=== PATIENT | male | born 1955 | race Two or more races ===

== ENCOUNTER 2024-03-23 08:55 | Emergency (ER) | payer OTHER, MEDICAID ==
[~2024-03-23] VITALS: Ht 182.9 cm; Wt 98.0 kg
[2024-03-23 10:56] VITALS: BP 140/74; PULSE 68; RESP 18; TEMP 98.2; O2SAT 97
[2024-03-23] MEDS: IBUPROFEN 800 MG TAB PO PRN (11:36)
[2024-03-23] MEDS: KETOROLAC TROMETH 30 MG/ML 1ML VIAL IV ONE ×2 (11:36→11:39)
[2024-03-23] MEDS ORDERED: KETOROLAC TROMETH 60MG/2ML VIAL IM ONE (11:45)
[2024-03-23] MEDS: KETOROLAC TROMETH 60MG/2ML VIAL IM ONE (12:04)
[2024-03-23] MEDS ORDERED: IBUP-1456 PO (16:24)
== END 2024-03-23 16:29 | disposition home or self-care (01) ==
LOC: ER 08:55
DX: S83.8X2A Sprain of other specified parts of left knee, initial encounter (principal); M25.562 Pain in left knee; X58.XXXA Exposure to other specified factors, initial encounter; Y93.89 Activity, other specified; Y92.89 Other specified places as the place of occurrence of the external cause; Y99.8 Other external cause status
CPT/HCPCS: 73560; 96372; 99283; J1885

== ENCOUNTER 2024-07-04 07:47 | Inpatient (IN) | payer OTHER, MEDICAID ==
[~2024-07-04] VITALS: Ht 182.9 cm; Wt 92.9 kg
[~2024-07-04 07:47] MED LIST: IBUP-1456 PO
--- NOTE | 2024-07-04 08:41 | ED.PDOC ---
SOB-HPI HPI Comments A 68Y M WITH PMHX LUNG DISEASE PRESENTS TO ED VIA EMS FOR CHIEF COMPLAINT FLU- LIKE SYMPTOMS X3DAYS. PT'S SYMPTOMS INCLUDE COUGH, CONGESTION, AND SORE THROAT. WHEN COUGHING, PT C/O CHEST TIGHTNESS WITH MIDDLE BACK PAIN. PER PT, HE HAS HX OF LUNG DISEASES AND PNEUMONIA IN THE PAST. PT DENIES CHEST PAIN, SOB, NAUSEA, VOMITING AND OTHER COMPLAINTS. NO OTHER SYMPTOMA REPORTED AT THIS TIME OF CARE. PATIENT IS ALERT, ORIENTED X 4, AND HAS STEADY GAIT. Chief Complaint: Flu like Time Seen by MD: 08:25 Primary Care Provider: DR CHRIS HUA Reviewed notes: Nurses Notes, Medications, Allergies Information Source: Patient Mode of Arrival: EMS Brought in by: EMS Severity: Mild, Moderate Timing: Days Duration: Since onset Context: At Rest PE Risk Factors: None History of: Other Prehospital treatment: None Modifying Factors: Nothing Associated Signs and Symptoms: Cough, Nasal Congestion, Sore Throat Quality: Tightness If cough with SOB: Productive Past Medical History Past Medical History (Other): PULMONARY DISEASE AND PNEUMONIA Surgical History: Denies all surgeries Family History Family History: Reviewed,noncontributory to illness, No family hx of Cancer, No family hx of DM, No family hx of Heart josh, No family hx of HTN, No family hx ofKidney josh, No family hx of Liver josh, No family hx of Lung josh, No family hx of Stroke Social History Smoker: Non-Smoker Alcohol: Denies ETOH Use Drugs: Denies Drug Use Lives In: Home Constitutional: denies: chills, diaphoresis, fatigue, fever, malaise, sweats, weakness, others EENTM: reports: nose congestion, throat pain, throat swelling; denies: blurred vision, double vision, ear bleeding, ear discharge, ear drainage, ear pain, ear ringing, eye pain, eye redness, hearing loss, mouth pain, mouth swelling, nasal discharge, nose bleeding, nose pain, photophobia, tearing, voice changes, others Respiratory: reports: cough; denies: hemoptysis, orthopnea, SOB at rest, s hortness of breath, SOB with excertion, stridor, wheezing, others Cardiovascular: denies: chest pain, dizzy spells, diaphoresis, Dyspnea on exertion, edema, irregular heart beat, left arm pain, lightheadedness, palpitations, PND, syncope, others Gastrointestinal: denies: abdomen distended, abdominal pain, blood streaked bowels, constipated, diarrhea, dysphagia, difficulty swallowing, hematemesis, melena, nausea, poor appetite, poor fluid intake, rectal bleeding, rectal pain, vomiting, others Genitourinary: denies: burning, dysuria, flank pain, frequency, hematuria, in continence, penile discharge, penile sore, pain, testicle pain, testicle swelling, urgency, others Neurological: denies: dizziness, fainting, headache, left sided numbness, left sided weakness, numbness, paresthesia, pre-existing deficit, right sided numbness, right sided weakness, seizure, speech problems, tingling, tremors, weakness, others Musculoskeletal: denies: back pain, gout, joint pain, joint swelling, muscle pain, muscle stiffness, neck pain, others Integumetry: denies: bruises, change in color, change in hair/nails, dryness, laceration, lesions, lumps, rash, wounds, others Allergic/Immunocompromised: denies: Difficulty Healing, Frequent Infections, Hives, Itching, others Hematologic/Lymphatic: denies: anemia, blood clots, easy bleeding, easy bruising, swollen glands, others Endocrine: denies: excessive hunger, excessive sweating, excessive thirst, excessive urination, flushing, intolerance to cold, intolerance to heat, unexplained weight gain, unexplained weight loss, others Psychiatric: denies: anxiety, bipolar disorder, depression, hopeless, panic disorder, schizophrenia, sleepless, suicidal, others Physical Exam General Appearance: No Apparent Distress, Normal HEENT: PERRL/EOMI, Pharyngeal Erythema, TMs Normal Neck: Full Range of Motion, Non-Tender, Normal, Normal Inspection Respiratory: Chest Non-Tender, Expiration, No Accessory Muscle Use, No Respiratory Distress, Rhonchi Cardiovascular: No Edema, No JVD, No Murmur, No Gallop, Normal Peripheral Pulses, Regular Rate/Rhythm Breast Exam: Deferred Gastrointestinal: No Organomegaly, Non Tender, No Pulsatile Mass, Normal Bowel Sounds, Soft Genitalia: Deferred Pelvic: Deferred Rectal: Deferred Extremities: No calf tenderness, Normal capillary refill, Normal inspection, Normal range of motion, Non-tender, No pedal edema Musculoskeletal : Apperance: Normal Neurologic: Alert, sea shell gatherer II-XII nml as Tested, No Motor Deficits, Normal Affect, Normal Mood, No Sensory Deficits Cerebellar Function: Normal Reflexes: Normal Skin: Dry, Normal Color, Warm Peripheral Pulses: 2+ carotid (R), 2+ carotid (L) Lymphatic: No Adenopathy Was a procedure done? Was a procedure done?: No Differential Dx Differential Diagnosis: COPD, Pneumonia, Sinusitis, Allergic Rhinitis, URI X-Ray, Labs, Meds, VS Vital Signs Date Time Temp Pulse Resp B/P (MAP) Pulse Ox O2 Delivery O2 Flow Rate FiO2 07/04/24 08:14 75 24 97 Room Air 07/04/24 08:14 98.2 75 24 123/70 (87) 97 98.2 07/04/24 08:00 24 97 Room Air* 0 21 07/04/24 07:54 98.2 75 24 123/70 (87) 97 Lab Test 07/04/24 10:34 07/04/24 09:30 Range/Units SARS-CoV-2 Antigen (Rapid) Negative NEGATIVE White Blood Count 5.8 4.4-10.8 10^3/uL Red Blood Count 5.09 4.5-5.90 10^6/uL Hemoglobin 16.6 13.5-17.5 g/dL Hematocrit 47.2 41.0-53.0 % Mean Corpuscular Volume 92.7 80.0-100.0 fL Mean Corpuscular Hemoglobin 32.7 H 28.0-32.0 pg Mean Corpuscular Hemoglobin Concent 35.2 32.0-36.0 g/dL Red Cell Distribution Width 12.3 11.8-14.3 % Platelet Count 173 140-450 10^3/uL Mean Platelet Volume 8.4 6.9-10.8 fL Neutrophils (%) (Auto) 62.7 37.0-80.0 % Lymphocytes (%) (Auto) 18.9 10.0-50.0 % Monocytes (%) (Auto) 17.0 H 0.0-12.0 % Eosinophils (%) (Auto) 1.0 0.0-7.0 % Basophils (%) (Auto) 0.4 0.0-2.0 % Neutrophils # (Auto) 3.6 1.6-8.6 10 ^3/uL Lymphocytes # (Auto) 1.1 0.4-5.4 10 ^3/uL Monocytes # (Auto) 1.0 0-1.3 10 ^3/uL Eosinophils # (Auto) 0.1 0-0.8 10 ^3/uL Basophils # (Auto) 0 0-0.2 10 ^3/uL Nucleated Red Blood Cells 0.2 % Sodium Level 138 136-145 mmol/L Potassium Level 4.0 3.5-5.1 mmol/L Chloride Level 103 98-107 mmol/L Carbon Dioxide Level 28 20-31 mmol/L Anion Gap 7 5-15 Blood Urea Nitrogen 12 9-23 mg/dL Creatinine 1.04 0.700-1.30 mg/dL Glomerular Filtration Rate Calc 79 >90 mL/min BUN/Creatinine Ratio 11.5 10.0-20.0 Serum Glucose 103 74-106 mg/dL Lactic Acid Level 0.8 0.4-2.0 mmol/L Calcium Level 10.5 H 8.7-10.4 mg/dL Current Medications Medications (Trade) Dose Ordered Sig/Jorge Route Start Time Stop Time Status Last Admin Sodium Chloride 1,000 ml @ 150 mls/hr Q6H40M ONCE IV 07/04/24 09:30 07/04/24 16:09 07/04/24 09:50 Ceftriaxone Sodium 50 ml @ 100 mls/hr ONCE ONCE IV 07/04/24 09:30 07/04/24 09:59 DC 07/04/24 09:56 Azithromycin 250 ml @ 125 mls/hr ONCE ONCE IV 07/04/24 09:30 07/04/24 11:29 DC 07/04/24 10:47 [place] [address] Ph: [phone] DIAGNOSTIC IMAGING Diagnostic Imaging Report : [id number] Signed PATIENT: MELANIE ABREU JR ACCT: [id number] UNIT: [id number] : 1955 LOC: ER ROOM / BED: / AGE / SEX: 68 / M ADM STATUS: REG ER SERVICE 08 ORDERING PHYSICIAN: BREEZY OROZCO PROCEDURE(s): CXR2 - CHEST TWO VIEWS ROUTINE REASON: COUGH ORDER NUMBER(s): [id number], ACCESSION NUMBER(s): [id number] EXAM: XY CHEST TWO VIEWS ROUTINE CLINICAL HISTORY: COUGH COMPARISON: None TECHNIQUE: Frontal and lateral view of the chest was obtained FINDINGS: Lines and Tubes: None Lungs: Right basilar opacity. Pleura: Possible small right pleural effusion. No pneumothorax. Cardiomediastinal contours: Unremarkable Bones: No acute osseous abnormality. IMPRESSION: Suggestion of right lower lobe pneumonia with possible small right pleural effusion. Recommend repeat radiograph after the completion of treatment to ensure resolution. ATED BY: LYNDSEY BOOKER MD DICTATED DATE/TIME: 07/04/24903 SIGNED BY: LYNDSEY BOOKER MD SIGNED DATE/TIME: 07/04/24903 CC: X-Ray, Labs, Meds, VS Comment COURSE: EXTERNAL MEDICAL RECORDS REVIEWED: [NONE] INDEPENDENT HISTORIANS: [NONE] SOCIAL DETERMINANTS OF HEALTH: [NONE] LABS ORDERED: CBC, BMP, LACTIC ACID, BLOOD CULTURE, COVID REVIEWED AND INTERPRETED RESULTS: NONE IMAGING ORDERED: CXR CHEST X RAY RESULT: BILATERAL LOWER LOBE PNEUMONIA TREATMENTS ORDERED: AZITHROMYCIN 500MG IV, NS 0.9, CEFTRIAXONE 1GM/50ML PROCEDURES PERFORMED: NONE CRITICAL CARE TIME: NONE PT PRESENT FOR COUGH AND CONGESTION. FEELS CHEST TIGHTNESS AND BACK PAIN. CLINICALLY, FEEL LIKE HE HAS PNA SO CXR WAS DONE WHICH SHOWS PNA AND SLIGHT CONSOLIDATION. ACCORDING TO HX OF PNA AND CHRONIC PULMONARY DISEASE, PT NEEDS TO BE ADMITTED FOR TREATMENT OF PNA. I HAVE DISCUSSED THE PATIENT WITH THE ATTENDING PHYSICIAN DR. GERALD BATISTA AND SHE AGREES WITH THE PATIENT'S PLAN OF CARE. Time of 1ST Reevaluation: 08:55 Reevaluation 1ST: Unchanged Patient Education/Counseling: Diagnosis, Treatment Family Education/Counseling: Diagnosis, Treatment, No Family Present Departure 1 Departure Time of Disposition: 10:22 Impression: Primary Impression: Pneumonia Qualified Codes: J18.9 - Pneumonia, unspecified organism Disposition: ADMITTED INPATIENT Condition: Serious Additional Instructions: Critical Care Note Critical Care Time?: No Stability Stability form required: Yes Unstable for transfer: Requires medication, ED Physician Assesment, Possible rapid decline Heart Score Heart Score: Heart Score Response (Comments) Value History Slightly Suspicious 0 EKG N/A 0 Age N/A 0 Risk Factors N/A 0 Troponin N/A 0 Total 0 I personally scribed for BREEZY OROZCO ([email or web address]) on 07/04/24 at 08:41. Electronically submitted by Angelica Lu ([facility]). I personally scribed for BREEZY OROZCO ([email or web address]) on 07/04/24 at 09:07. Electronically submitted by Angelica Lu ([facility]). I personally scribed for BREEZY OROZCO ([email or web address]) on 07/04/24 at 10:22. Electronically submitted by Angelica Lu ([facility]). I personally scribed for BREEZY OROZCO ([email or web address]) on 07/04/24 at 10:36. Electronically submitted by Angelica Lu ([facility]). BREEZY OROZOC Jul 04, 2024 08:41
--- NOTE | 2024-07-04 09:05 | DVH ---
EXAM: XY CHEST TWO VIEWS ROUTINE CLINICAL HISTORY: COUGH COMPARISON: None TECHNIQUE: Frontal and lateral view of the chest was obtained FINDINGS: Lines and Tubes: None Lungs: Right basilar opacity. Pleura: Possible small right pleural effusion. No pneumothorax. Cardiomediastinal contours: Unremarkable Bones: No acute osseous abnormality. IMPRESSION: Suggestion of right lower lobe pneumonia with possible small right pleural effusion. Recommend repeat radiograph after the completion of treatment to ensure resolution.
[2024-07-04 09:47] LABS: Basophils # (auto) 0 10 ^3/uL (0-0.2); Basophils % (auto) 0.4 % (0.0-2.0); Eosinophils # (auto) 0.1 10 ^3/uL (0-0.8); Hematocrit 47.2 % (41.0-53.0); Hemoglobin 16.6 g/dL (13.5-17.5); Lymphocytes # (auto) 1.1 10 ^3/uL (0.4-5.4); Lymphocytes % (auto) 18.9 % (10.0-50.0); Mean Corpuscular Hemoglobin 32.7 pg (28.0-32.0); Mean Corpuscular Hgb Conc. 35.2 g/dL (32.0-36.0); Mean Corpuscular Volume 92.7 fL (80.0-100.0); Neutrophils # (auto) 3.6 10 ^3/uL (1.6-8.6); Neutrophils % (auto) 62.7 % (37.0-80.0); Nucleated Red Blood Cells % 0.2 %; Platelet Count (auto) 173 10^3/uL (140-450); Red Blood Cells 5.09 10^6/uL (4.5-5.90); Red Cell Distribution Width 12.3 % (11.8-14.3); White Blood Cell 5.8 10^3/uL (4.4-10.8)
[2024-07-04] MEDS: SODIUM CHLORIDE 0.9% 1,000 ML IV ONE (09:50)
[2024-07-04] MEDS: cefTRIAXone 1GM/50ML D5W 50 ML IV ONE (09:56)
[2024-07-04 10:11] LABS: Chloride 103 mmol/L (98-107); Sodium 138 mmol/L (136-145)
[2024-07-04 10:12] LABS: Anion Gap 7 (5-15); Carbon Dioxide 28 mmol/L (20-31)
[2024-07-04 10:16] LABS: Calcium 10.5 mg/dL (8.7-10.4)
[2024-07-04 10:17] LABS: Glucose 103 mg/dL (74-106)
[2024-07-04 10:18] LABS: BUN/Creatinine Ratio 11.5 (10.0-20.0); Blood Urea Nitrogen 12 mg/dL (9-23)
[2024-07-04] MEDS: AZITHROMYCIN 500MG/ 250ML 250 ML IV ONE (10:47)
[2024-07-04] MEDS ORDERED: AMLO1TAB21 PO (11:29)
[2024-07-04] MEDS ORDERED: MORPHINE SULFATE INJ 2 MG/ml SYRG IV PRN (11:30)
[2024-07-04] MEDS ORDERED: DOCUSATE SOD 100 MG CAP PO PRN (11:30)
[2024-07-04] MEDS ORDERED: ONDANSETRON HCL 4 MG/2 ML VIAL IV PRN (11:30)
[2024-07-04] MEDS ORDERED: HYDROcodone-ACET 5/325MG TAB PO PRN (11:30)
[2024-07-04] MEDS ORDERED: ACETAMINOPHEN 325 MG TAB PO PRN (11:30)
--- NOTE | 2024-07-04 11:32 | DVHHP2 ---
History of Present Illness Reason for Visit: cough, congestion, sore throat, and chest tightness History of Present Illness Jorge Syed JR is a 68-year-old male with past medical history of hypertension and lung disease who presents to the ED today for cough, congestion, sore throat, and chest tightness x3 days. Patient reports productive yellow sputum for the last 3 days. Patient reports that he has been feeling flu-like for the last 3 days, reports that he lives in a recuperative custodial with sick individuals. He also reports that the smoke in the facility. Patient reports that he is compliant with his medication. He reports that he drinks beer occasionally. Patient reports that he has a history of lung disease but not sure exactly what and that they did a biopsy back in 2017 and he does not recall the results. He denies smoking or illicit drug use, denies chest pain, shortness of breath, fever, chills, FERREIRA, and lightheadness. Cardiovascular: HTN Pulmonary: Other (lung disease) Past Surgical History: None Family History: Hypertension Family History Mom - HTN Dad - smoker Dad and mom both from heart attacks Smoke: No ALCOHOL: occassional Drugs: None Lives: Other Domestic Violence: Neg Review of Systems Constitutional: No: Fever, Chills, Sweats, Weakness, Malaise, Other Eyes: No: Pain, Vision change, Conjunctivae inflammation, Eyelid inflammation, Other, Redness ENT: Other (sore throat); No: Ear pain, Ear discharge, Nose pain, Nose discharge, Nose congestion, Mouth pain, Mouth swelling, Throat pain, Throat swelling Respiratory: Cough, Other (congestion); No: Dry, Shortness of breath, SOB with excertion, Wheezing, Hemoptysis, Pleuritic Pain, Sputum, Wheezing Cardiovascular: Other (chest tightness); No: Chest Pain, Palpitations, Orthopnea, Paroxysmal Noc. Dyspnea, Edema, Lt Headedness Gastrointestinal: No: Nausea, Vomiting, Abdominal Pain, Diarrhea, Constipation, Melena, Hematochezia, Other Genitourinary: No Dysuria, No Frequency, No Incontinence, No Hematuria, No Retention, No Other Musculoskeletal: No: other, neck pain, shoulder pain, arm pain, back pain, hand pain, leg pain, foot pain Skin: No: Rash, Lesions, Jaundice, Bruising, Other Neurological: No: Weakness, Numbness, Incoordination, Change in speech, Confusion, Seizures, Other Allergies: Coded Allergies: NO KNOWN ALLERGIES (Unverified , 03/23/24) Exam Vital Signs Vital Signs Date Time Temp Pulse Resp B/P (MAP) Pulse Ox O2 Delivery O2 Flow Rate FiO2 07/04/24 08:14 75 24 97 Room Air 07/04/24 08:14 98.2 123/70 (87) 98.2 07/04/24 08:00 0 21 General Appearance: Alert, Oriented X3, Cooperative, No acute distress HEENT: Atraumatic, PERRLA, EOMI, Mucous membr. moist/pink Respiratory: Normal air movement Cardiovascular: Regular rate, Normal S1, Normal S2, No murmurs Abdominal: Normal bowel sounds, Soft, No tenderness, No hepatospenomegaly, No masses Extremities: No clubbing, No cyanosis, No edema, Normal pulses, No t enderness/swelling Skin: No rashes, No breakdown, No significant lesion Neuro: Normal gait, Normal speech, Strength at 5/5 X4 ext, Normal tone, Sensation intact Psych/Mental Status: Mental status NL, Mood NL Labs/Xrays Labs Test 07/04/24 10:34 07/04/24 09:30 Range/Units White Blood Count 5.8 4.4-10.8 10^3/uL Red Blood Count 5.09 4.5-5.90 10^6/uL Hemoglobin 16.6 13.5-17.5 g/dL Hematocrit 47.2 41.0-53.0 % Mean Corpuscular Volume 92.7 80.0-100.0 fL Mean Corpuscular Hemoglobin 32.7 H 28.0-32.0 pg Mean Corpuscular Hemoglobin Concent 35.2 32.0-36.0 g/dL Red Cell Distribution Width 12.3 11.8-14.3 % Platelet Count 173 140-450 10^3/uL Mean Platelet Volume 8.4 6.9-10.8 fL Neutrophils (%) (Auto) 62.7 37.0-80.0 % Lymphocytes (%) (Auto) 18.9 10.0-50.0 % Monocytes (%) (Auto) 17.0 H 0.0-12.0 % Eosinophils (%) (Auto) 1.0 0.0-7.0 % Basophils (%) (Auto) 0.4 0.0-2.0 % Neutrophils # (Auto) 3.6 1.6-8.6 10 ^3/uL Lymphocytes # (Auto) 1.1 0.4-5.4 10 ^3/uL Monocytes # (Auto) 1.0 0-1.3 10 ^3/uL Eosinophils # (Auto) 0.1 0-0.8 10 ^3/uL Basophils # (Auto) 0 0-0.2 10 ^3/uL Nucleated Red Blood Cells 0.2 % Sodium Level 138 136-145 mmol/L Potassium Level 4.0 3.5-5.1 mmol/L Chloride Level 103 98-107 mmol/L Carbon Dioxide Level 28 20-31 mmol/L Anion Gap 7 5-15 Blood Urea Nitrogen 12 9-23 mg/dL Creatinine 1.04 0.700-1.30 mg/dL Glomerular Filtration Rate Calc 79 >90 mL/min BUN/Creatinine Ratio 11.5 10.0-20.0 Serum Glucose 103 74-106 mg/dL Lactic Acid Level 0.8 0.4-2.0 mmol/L Calcium Level 10.5 H 8.7-10.4 mg/dL EXAM: XY CHEST TWO VIEWS ROUTINE CLINICAL HISTORY: COUGH COMPARISON: None TECHNIQUE: Frontal and lateral view of the chest was obtained FINDINGS: Lines and Tubes: None Lungs: Right basilar opacity. Pleura: Possible small right pleural effusion. No pneumothorax. Cardiomediastinal contours: Unremarkable Bones: No acute osseous abnormality. IMPRESSION: Suggestion of right lower lobe pneumonia with possible small right pleural effusion. Recommend repeat radiograph after the completion of treatment to ensure resolution. Assessment/Plan Assessment/Plan Assessment/Plan: PNA labs cxr ekg am ekg am labs IV Abx ua resp tx prn cxr am blood cxs Lung disease O2 prn HTN continue home meds - amlodipine FEN/PPX diet patient ambulating no indication for DVT ppx PUD ppx not indicated no Hx of GERD Discussed plan of care with patient and nurse Admit to med [facility] Home medications reconciled Plan discussed with: Patient My Orders Orders - VICKEY ANDERSON OFFICE TECHNOLOGY PROFESSOR Procedure Category Date Status Time Azithromycin 500mg/ PHA 07/05/24 Transmitted 250ml (Zithromax 50 10:00 Ceftriaxone Ivpb PHA 07/05/24 Transmitted Rocephin 09:00 Albuterol Medneb PHA 07/04/24 Transmitted (Ventolin Medneb) 11:30 Ipratropium Medneb [facility] 07/04/24 Transmitted (Atrovent Medneb) 11:30 Admit ADMIT 07/04/24 Transmitted 11:22 Code Status CODE 07/04/24 Transmitted 11:22 Vital Signs [facility] 07/04/24 In Process 11:22 Review Orders With [facility] 07/04/24 In Process Adm. 11:22 Consistent DIET 07/04/24 Transmitted Carb(Ccho)Diabetes Lunch Docusate Sodium [facility] 07/04/24 Transmitted Capsule (Colace 11:30 Acetaminophen Tablet [facility] 07/04/24 Transmitted (Tylenol Tablet) 11:30 Notify Md Of Changes [facility] 07/04/24 In Process From Base 11:22 Advance Directive [facility] 07/04/24 In Process 11:22 Basic Metabolic Panel LAB 07/05/24 Verified 04:00 Complete Blood Count LAB 07/05/24 Verified 04:00 Allergies [facility] 07/04/24 In Process 11:22 Hydrocodone-Acet [facility] 07/04/24 Transmitted 5/325mg Tab ([place] 11:30 Ondansetron Hcl [facility] 07/04/24 Transmitted (Zofran) 11:30 Morphine 2mg Iv Q4hprn [facility] 07/04/24 Transmitted 11:30 Chest Xray 1 View XY 07/05/24 Logged 04:00 Date of Service: Jul 04, 2024 Billing Provider: VICKEY ANDERSON Common Visit Codes: [id number] INP/OBS CARE (MOD) VICKEY ANDERSON Jul 04, 2024 11:32
[2024-07-04 11:34] LABS: COVID19 ANTIGEN SOFIA FIA NEGATIVE (NEGATIVE)
[2024-07-04 11:52] VITALS: BP 123/70; PULSE 81; RESP 18; TEMP 98.2; O2SAT 99
[2024-07-04 15:06] VITALS: BP 135/91; PULSE 75; RESP 22; TEMP 98.4; O2SAT 93
[2024-07-04 19:25] VITALS: O2SAT 94
[2024-07-04 22:25] VITALS: BP 134/79; PULSE 71; RESP 18; RESP 20; TEMP 98.7; O2SAT 94; O2SAT 96
[2024-07-05] VITALS (9 sets, daily range): BP systolic 112–135; BP diastolic 70–79; PULSE 65–71; RESP 16–20; TEMP 97.9–98.7; O2SAT 94–98
[2024-07-05] MEDS: MELATONIN 5 MG TAB PO ONE (00:01)
[2024-07-05 03:34] LABS: COVID19 ANTIGEN SOFIA FIA NEGATIVE (NEGATIVE)
[2024-07-05 06:13] LABS: Basophils # (auto) 0 10 ^3/uL (0-0.2); Basophils % (auto) 0.3 % (0.0-2.0); Eosinophils # (auto) 0.1 10 ^3/uL (0-0.8); Eosinophils % (auto) 1.7 % (0.0-7.0); Hematocrit 39.7 % (41.0-53.0); Hemoglobin 14.2 g/dL (13.5-17.5); Lymphocytes # (auto) 1.8 10 ^3/uL (0.4-5.4); Mean Corpuscular Hgb Conc. 35.7 g/dL (32.0-36.0); Mean Corpuscular Volume 92.5 fL (80.0-100.0); Monocytes % (auto) 15.9 % (0.0-12.0); Neutrophils # (auto) 3.3 10 ^3/uL (1.6-8.6); Neutrophils % (auto) 53.1 % (37.0-80.0); Nucleated Red Blood Cells % 0.1 %; Platelet Count (auto) 160 10^3/uL (140-450); Red Cell Distribution Width 12.5 % (11.8-14.3); White Blood Cell 6.2 10^3/uL (4.4-10.8)
[2024-07-05 06:27] LABS: Calcium 9.6 mg/dL (8.7-10.4); Chloride 103 mmol/L (98-107); Potassium 3.6 mmol/L (3.5-5.1); Sodium 138 mmol/L (136-145)
[2024-07-05 06:28] LABS: Anion Gap 10 (5-15); Carbon Dioxide 25 mmol/L (20-31)
--- NOTE | 2024-07-05 06:29 | DVH ---
CHEST RADIOGRAPH Indication: pna Technique: Single frontal view of the chest was obtained Comparison: None IMPRESSION: There are low lung volumes. Blunting of the right costophrenic angle May relate to small effusion. M ild pulmonary vascular congestion and interstitial prominence. Findings appear similar to prior exami nation.
[2024-07-05 06:33] LABS: BUN/Creatinine Ratio 16.7 (10.0-20.0); Blood Urea Nitrogen 18 mg/dL (9-23); Glucose 95 mg/dL (74-106)
[2024-07-05 07:51] LABS: Alanine Aminotransferase 12 U/L (7-40); Albumin 4.1 g/dL (3.2-4.8); Alkaline Phosphatase 89 U/L (46-116); Anion Gap 9 (5-15); Aspartate Aminotransferase 26 U/L (13-40); BUN/Creatinine Ratio 16.8 (10.0-20.0); Blood Urea Nitrogen 18 mg/dL (9-23); Calcium 9.6 mg/dL (8.7-10.4); Carbon Dioxide 25 mmol/L (20-31); Chloride 104 mmol/L (98-107); Glucose 95 mg/dL (74-106); Magnesium 2.1 mg/dL (1.6-2.6); Potassium 3.6 mmol/L (3.5-5.1); Sodium 138 mmol/L (136-145)
[2024-07-05 07:52] LABS: Total Protein 7.1 g/dL (5.7-8.2)
[2024-07-05 07:53] LABS: Bilirubin, Total 1.2 mg/dL (0.2-1.0); Blood Alcohol < 3.0 mg/dL (<10)
[2024-07-05 07:59] LABS: INR 1.04 (0.9-1.15); Partial Thromboplastin Time 32.1 SEC (24.5-34.5)
[2024-07-05] MEDS: cefTRIAXone 1GM/50ML D5W 50 ML IV SCH (08:32)
[2024-07-05] MEDS: AZITHROMYCIN 500MG/ 250ML 250 ML IV SCH (10:48)
--- NOTE | 2024-07-05 14:14 | DVHPNRES ---
Progress Note Date Seen: Jul 05, 2024 Resident Creating Document: DEDRICK SEPULVEDA RESIDENT Medical Necessity Reason Pt with a Central, PICC or Fol: No Subjective Review of Systems Jorge Syed JR with a 68-year-old male with PMH of HTN, questionable COPD, osteoarthritis, anxiety presented to the ED with the chief complaints of cough for past 4 days. Patient reported he has been exposing to more code, started lb cough with yellow sputum, so ordered, few episodes of fever, loss of taste and smell sensation and occasional shortness of breath which prompted him to visit ED. patient also reported he lives in a facility and people around him or coughing much. On my assessment patient denies chest pain, nausea, vomiting, diarrhea, abdominal pain, and other acute associated symptoms. PMH: History and, COPD, osteoarthritis, anxiety PSH: Denies Family history: Both father and mother of heart issues Social history: Lives with facility. Denies smoking, alcohol and other drug abuse Allergies: No known allergies Patient seen and examined at the bedside. Patient reported improvement in his symptoms since admission, reported no new complaints. CXR showed right lower lobe pneumonia with possible small right pleural effusion. Patient currently receiving Azithromycin and ceftriaxone along with breathing treatments. Ordered respiratory and blood cultures, pending. Objective vital signs Vital Sign Date Time Temp Pulse Resp B/P (MAP) Pulse Ox O2 Delivery O2 Flow Rate FiO2 07/05/24 09:00 98.2 68 17 123/71 (88) 94 98.2 07/05/24 08:21 Room Air* 0 21 Total Intake and Output 07/04/24 07/04/24 07/05/24 15:00 23:00 07:00 Intake Total 100 ml 0 ml 500 ml Output Total 1 ml Balance 100 ml 0 ml 499 ml medications Current Medications Medications Dose Ordered Sig/Jorge Route Start Time Stop Time Status Last Admin Dose Admin Azithromycin 250 ml @ 125 mls/hr DAILY IV 07/05/24 10:00 07/05/24 10:48 125 MLS/HR Ceftriaxone Sodium 50 ml @ 100 mls/hr DAILY@09 IV 07/05/24 09:00 07/05/24 08:32 100 MLS/HR Albuterol 2.5 mg Q4HPRN PRN NEB 07/04/24 11:30 Ipratropium [place] 0.5 mg Q4HPRN PRN NEB 07/04/24 11:30 Docusate Sodium 100 mg BIDPRN PRN PO 07/04/24 11:30 Acetaminophen 650 mg Q6HP PRN PO 07/04/24 11:30 Acetaminophen/ Hydrocodone Bitart 1 tab Q4HP PRN PO 07/04/24 11:30 Ondansetron HCl 4 mg Q4HP PRN IV 07/04/24 11:30 Morphine Sulfate 2 mg Q4HPRN PRN IV 07/04/24 11:30 Examination Pt is lying on bed General Appearance: Alert, Oriented X3, Cooperative, Not in acute distress HEENT: Atraumatic, Mucous membranes moist/pink Respiratory: Clear to auscultation, Normal air movement,Mild crackles in the right side Cardiovascular: Regular rate, Normal S1, Normal S2, No murmurs Abdominal: Active bowel sounds, Soft, no distention, no tenderness Extremities: No edema, Normal pulses, No tenderness/swelling Skin: No Significant rash Neuro: Normal speech, sensorimotor deficits none Psych/Mental Status: Mental status NL, Mood NL Nurse was there as sharperone during examination laboratory and microbiology Laboratory Tests 07/05/24 04:23 Test 07/05/24 04:23 Range/Units Serum Glucose 95 74-106 mg/dL Microbiology Date/Time Source Procedure Growth Status 07/05/24 00:10 Nose MRSA Screen - Final Complete 07/04/24 09:30 Blood Blood Culture - Preliminary NO GROWTH AFTER 24 HOURS OF INCUBATION. Resulted Labs and/or images reviewed: Labs reviewed by me, Image(s) reviewed by me Problem List/Assessment/Plan Problem List/Assessment/Plan # acute Gram-positive / negative bacterial PNA - CXR showed right lower lobe pneumonia with possible small right pleural effusion. - Patient currently receiving Azithromycin and ceftriaxone along with breathing treatments. - ordered sputum cultures and blood cultures - supportive management # essential hypertension -Resumed home meds SCDs for now No ppi Cardiac diet Reconciled home meds Goals care discussed with the patient for more than 27 minutes: Full code status Case management discussed with Dr. Lu, patient and nurse Plan discussed with: Patient My Orders My Orders Orders - DEDRICK SEPULVEDA RESIDENT Procedure Category Date Status Time Respiratory Culture MARCELO 07/05/24 Logged W/ Gs 07:30 Vitamin D, 25-Hydroxy LAB 07/05/24 In Process 07:30 Vitamin B12 LAB 07/05/24 In Process 07:30 Urinalysis LAB 07/05/24 Logged 07:30 Drug Screen LAB 07/05/24 Logged 07:30 Zolpidem Tartrate PHA 07/05/24 Logged (Ambien) 20:00 Basic Metabolic Panel LAB 07/06/24 Verified 04:00 Complete Blood Count LAB 07/06/24 Verified 04:00 (Nf) Amlodipine PHA 07/06/24 Transmitted [place] 10:00 Date of Service: Jul 05, 2024 Billing Provider: SILVINA LU MD Common Visit Codes: [id number] INP/OBS CARE(HIGH) Secondary Visit Codes: [id number] CARE PLAN 30 MINUTES DEDRICK SEPULVEDA RESIDENT Jul 05, 2024 14:14 SILVINA LU MD Jul 07, 2024 19:58
[2024-07-05] MEDS ORDERED: MELATONIN 5 MG TAB PO ONE (22:00)
[2024-07-05] MEDS: ZOLPIDEM TARTRATE 5 MG TAB PO SCH (22:43)
[2024-07-06] VITALS (8 sets, daily range): BP systolic 125–135; BP diastolic 69–78; PULSE 65–78; RESP 14–19; TEMP 97.6–98.4; O2SAT 93–100
[2024-07-06] MEDS: ALBUTEROL SULF 2.5 MG/0.5ML(0.5%) NEB SOLN NEB PRN (08:53)
[2024-07-06] MEDS: IPRATROPIUM BROM 0.5 MG/2.5ML INH SOL NEB PRN (08:53)
[2024-07-06] MEDS: amLODIPine BESYLATE 5 MG TAB PO SCH (10:26)
[2024-07-06 15:14] LABS: Basophils # (auto) 0 10 ^3/uL (0-0.2); Basophils % (auto) 0.2 % (0.0-2.0); Eosinophils # (auto) 0.1 10 ^3/uL (0-0.8); Eosinophils % (auto) 2.6 % (0.0-7.0); Hematocrit 41.2 % (41.0-53.0); Hemoglobin 14.5 g/dL (13.5-17.5); Lymphocytes # (auto) 1.7 10 ^3/uL (0.4-5.4); Lymphocytes % (auto) 29.1 % (10.0-50.0); Mean Corpuscular Hemoglobin 32.4 pg (28.0-32.0); Mean Corpuscular Hgb Conc. 35.2 g/dL (32.0-36.0); Mean Corpuscular Volume 92.1 fL (80.0-100.0); Monocytes # (auto) 0.8 10 ^3/uL (0-1.3); Monocytes % (auto) 13.8 % (0.0-12.0); Neutrophils # (auto) 3.1 10 ^3/uL (1.6-8.6); Neutrophils % (auto) 54.3 % (37.0-80.0); Nucleated Red Blood Cells % 0.2 %; Platelet Count (auto) 172 10^3/uL (140-450); Red Blood Cells 4.47 10^6/uL (4.5-5.90); Red Cell Distribution Width 12.3 % (11.8-14.3); White Blood Cell 5.8 10^3/uL (4.4-10.8)
[2024-07-06 15:19] LABS: Chloride 103 mmol/L (98-107); Sodium 138 mmol/L (136-145)
[2024-07-06 15:20] LABS: Anion Gap 6 (5-15); Calcium 10.3 mg/dL (8.7-10.4); Carbon Dioxide 29 mmol/L (20-31)
[2024-07-06 15:25] LABS: Blood Urea Nitrogen 13 mg/dL (9-23)
[2024-07-06 15:35] LABS: Glucose 70 mg/dL (74-106)
[2024-07-06 19:30] LABS: Urine Bacteria None Seen /hpf (None Seen); Urine WBC None Seen /hpf (0 - 3)
[2024-07-06 19:57] LABS: Urine Blood Negative /uL (Negative); Urine Clarity Clear (Clear); Urine Color Light-Yellow (Yellow); Urine Protein, UAD Negative (Negative); Urine Urobilinogen Normal (Negative)
[2024-07-06 20:18] LABS: Amphetamine Screen, Urine Neg (NEGATIVE); Barbiturate Scree,Urine Neg (NEGATIVE); Benzodiazephine Screen, Urine Neg (NEGATIVE); Cannabinoid Screen, Urine Neg (NEGATIVE); Cocaine Screen, Urine Neg (NEGATIVE); Opiate Scree,Urine Neg (NEGATIVE); Phencyclidine Screen, Urine Neg (NEGATIVE)
--- NOTE | 2024-07-06 22:09 | DVHPNRES ---
Progress Note Date Seen: Jul 06, 2024 Resident Creating Document: JAMAAL HAGER RESIDENT Medical Necessity Reason Pt with a Central, PICC or Fol: No Subjective Review of Systems Jorge Syed JR is a 68-year-old male patient who presents to the ED with chief complaint of progressive dyspnea in functional class III associated with fever, anosmia, ageusia, productive cough with yellow sputum for past 4 days before his admission. Patient reports to have been exposed to people that seemed to have flu-like symptoms and also has been exposed to more smoke. Denies chest pain, nausea, vomiting, diarrhea, abdominal pain, and other acute associated symptoms. Past medical history: Hypertension, questionable COPD, osteoarthritis, anxiety Surgical history: Denies Family history: Both father and mother of heart issues Social history: Lives with facility. Denies smoking, alcohol and other drug abuse Allergies: No known allergies Home medication: Patient seen and examined at the bedside. Patient reported improvement in his symptoms since admission, but continues having abundant productive cough. Objective vital signs Vital Sign Date Time Temp Pulse Resp B/P (MAP) Pulse Ox O2 Delivery O2 Flow Rate FiO2 07/06/24 20:23 99 Room Air* 0 21 07/06/24 16:15 98.4 67 17 125/69 (87) 98.4 Total Intake and Output 07/05/24 07/05/24 07/06/24 15:00 23:00 07:00 Intake Total 850 ml 800 ml Balance 850 ml 800 ml medications Current Medications Medications Dose Ordered Sig/Jorge Route Start Time Stop Time Status Last Admin Dose Admin Azithromycin 250 ml @ 125 mls/hr DAILY IV 07/05/24 10:00 07/06/24 12:13 125 MLS/HR Ceftriaxone Sodium 50 ml @ 100 mls/hr DAILY@09 IV 07/05/24 09:00 07/06/24 10:24 100 MLS/HR Albuterol 2.5 mg Q4HPRN PRN NEB 07/04/24 11:30 07/06/24 08:53 2.5 MG Ipratropium [place] 0.5 mg Q4HPRN PRN NEB 07/04/24 11:30 07/06/24 08:53 0.5 MG Docusate Sodium 100 mg BIDPRN PRN PO 07/04/24 11:30 Acetaminophen 650 mg Q6HP PRN PO 07/04/24 11:30 Acetaminophen/ Hydrocodone Bitart 1 tab Q4HP PRN PO 07/04/24 11:30 Ondansetron HCl 4 mg Q4HP PRN IV 07/04/24 11:30 Morphine Sulfate 2 mg Q4HPRN PRN IV 07/04/24 11:30 Zolpidem Tartrate 5 mg QPM PO 07/05/24 20:00 07/06/24 18:11 5 MG Amlodipine Besylate 2.5 mg DAILY PO 07/06/24 10:00 07/06/24 10:26 2.5 MG Examination Patient lying in bed, in no acute distress General: Lucid, afebrile, mucosae are moist Cardiovascular: Normal S1 and S2. Systolic crescendo decrescendo mid peaking murmur best heard in apex of heart, does not radiate towards axilla, intensity 3/6. No gallops or rubs Respiratory: Normal ventilation mechanics. Clear lung sounds on auscultation Abdomen: Soft, nontender, no organomegaly, normal bowel sounds MSK/skin: Mobilizes 4 limbs. Skin is dry and warm Neurological: Oriented in 3 spheres. No motor no sensitive deficits. Pupils are isocoric and reactive laboratory and microbiology Laboratory Tests 07/06/24 14:35 Test 07/06/24 14:35 Range/Units Serum Glucose 70 L 74-106 mg/dL Microbiology Date/Time Source Procedure Growth Status 07/05/24 00:10 Nose MRSA Screen - Final Complete 07/04/24 09:30 Blood Blood Culture - Preliminary NO GROWTH AFTER 48 HOURS OF INCUBATION. Resulted Problem List/Assessment/Plan Problem List/Assessment/Plan Acute Gram-positive / negative bacterial pneumonia CXR showed right lower lobe pneumonia with possible small right pleural effusion. 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 medication Osteoarthritis Optimize pain medication Goals of care discussed with patient for over 18 minutes: Full code status Case management discussed with Dr. Lu, patient and nurse: Patient is still presents abundant productive cough, pending echocardiogram to evaluate cardiac valvular disease. Plan discussed with: Patient, Other (Nurses) Date of Service: Jul 06, 2024 Billing Provider: SILVINA LU MD Common Visit Codes: [id number] INP/OBS CARE(HIGH) JAMAAL HAGER RESIDENT Jul 06, 2024 22:08 SILVINA LU MD Jul 07, 2024 19:58
[2024-07-07] VITALS (7 sets, daily range): BP systolic 119–155; BP diastolic 39–82; PULSE 62–79; RESP 16–21; TEMP 97.1–98.7; O2SAT 94–100
[2024-07-07] MEDS: guaiFENesin 200 MG/10 ML UD PO ONE (06:00)
--- NOTE | 2024-07-07 07:12 | DVHSR ---
APPROVED REPORT EXAM: Two-dimensional and M-mode echocardiogram with Doppler and color Doppler. Blood Pressure: 125/78 mmHg INDICATION SOB, murmur RISK FACTORS Height: 71, Weight: 208 DIMENSIONS LVDd3.9 (3.8-5.7cm)LA (2D)3.8 (1.9-4.0cm)Aortic Root3.6 (2.0-3.7cm) LVDs2.5 (2.5-4.0cm)LA (MM) (1.9-4.0cm)Aortic Cusp Exc1.4 (1.5-2.0cm) EF (%) 65.0 (55-70%)Rt. Atrium4.3 (1.9-4.0cm)Asc. Aorta cm Mitral Valve MitralMitral Stenosis E wave0.82m/sMV Mean GR.mmHg A wave0.91m/sMV Peak GR.mmHg E/A ratio0.92D MVAcm2 DECEL [id number] 1/2 [id number] IVRTmsDop MVA2.28cm2 Aortic Valve Aortic ValveAortic Stenosis V11.05m/Zeenat Mean GR.16mmHg V22.70m/Zeenat Peak GR.29mmHg LVOT Diameter2.2 (1.8-2.4cm)Doppler AVA1.48cm2 Pulmonic Valve V20.89m/s Conclusion lvef 55-60% by visual estimate moderate LVH aortic stenosis, mean gradient of 16 mmhg, mild to moderate normal rv function normal atria
[2024-07-07 07:16] LABS: Basophils # (auto) 0 10 ^3/uL (0-0.2); Basophils % (auto) 0.2 % (0.0-2.0); Eosinophils # (auto) 0.3 10 ^3/uL (0-0.8); Eosinophils % (auto) 4.4 % (0.0-7.0); Hematocrit 39.6 % (41.0-53.0); Hemoglobin 14.2 g/dL (13.5-17.5); Lymphocytes # (auto) 2.1 10 ^3/uL (0.4-5.4); Lymphocytes % (auto) 30.8 % (10.0-50.0); Mean Corpuscular Hgb Conc. 35.8 g/dL (32.0-36.0); Mean Corpuscular Volume 92.1 fL (80.0-100.0); Monocytes # (auto) 0.9 10 ^3/uL (0-1.3); Monocytes % (auto) 13.1 % (0.0-12.0); Neutrophils # (auto) 3.5 10 ^3/uL (1.6-8.6); Neutrophils % (auto) 51.5 % (37.0-80.0); Nucleated Red Blood Cells % 0.1 %; Platelet Count (auto) 184 10^3/uL (140-450); Red Cell Distribution Width 11.9 % (11.8-14.3); White Blood Cell 6.8 10^3/uL (4.4-10.8)
[2024-07-07 07:17] LABS: Anion Gap 9 (5-15); Carbon Dioxide 26 mmol/L (20-31); Chloride 104 mmol/L (98-107); Potassium 4.2 mmol/L (3.5-5.1); Sodium 139 mmol/L (136-145)
[2024-07-07 07:18] LABS: Calcium 10.1 mg/dL (8.7-10.4)
[2024-07-07 07:23] LABS: BUN/Creatinine Ratio 15.7 (10.0-20.0); Blood Urea Nitrogen 16 mg/dL (9-23); Glucose 86 mg/dL (74-106)
[2024-07-07 07:24] LABS: Magnesium 2.3 mg/dL (1.6-2.6)
[2024-07-07 07:25] LABS: Phosphorus 3.6 mg/dL (2.4-5.1)
--- NOTE | 2024-07-07 08:23 | DVHPNRES ---
Progress Note Date Seen: Jul 07, 2024 Resident Creating Document: KATRIN GOMEZ RESIDENT Has the PT tested + for MRSA If YES, has PT been informed?: Yes Medical Necessity Reason Pt with a Central, PICC or Fol: No Subjective Review of Systems Jorge Syed JR is a 68-year-old male patient who presents to the ED with chief complaint of progressive dyspnea in functional class III associated with fever, anosmia, ageusia, productive cough with yellow sputum for past 4 days before his admission. Patient reports to have been exposed to people that seemed to have flu-like symptoms and also has been exposed to more smoke. Denies chest pain, nausea, vomiting, diarrhea, abdominal pain, and other acute associated symptoms. Past medical history: Hypertension, questionable COPD, osteoarthritis, anxiety Surgical history: Denies Family history: Both father and mother of heart issues Social history: Lives with facility. Denies smoking, alcohol and other drug abuse Allergies: No known allergies Home medication: Patient seen and examined at the bedside. Patient reported improvement in his symptoms since admission, but continues having abundant productive cough. sputum culture is pending. Review of systems Constitutional: No: Fever, Chills, Sweats, Weakness, Malaise, Other Eyes: No: Pain, Vision change, Conjunctivae inflammation, Eyelid inflammation, Other, Redness ENT: No: Ear pain, Ear discharge, Nose pain, Nose discharge, Nose congestion, Mouth pain, Mouth swelling, Throat pain, Throat swelling, Other Respiratory: Cough present, Shortness of breath, improving No Wheezing, Hemoptysis, Pleuritic Pain, Sputum, Wheezing, Other Cardiovascular: No: Chest Pain, Palpitations, Orthopnea, Paroxysmal Noc. Dyspnea, Edema, Lt Headedness, Other Gastrointestinal: No: Nausea, Vomiting, Abdominal Pain, Diarrhea, Constipation, Melena, Hematochezia, Other Musculoskeletal: No: other, neck pain, shoulder pain, arm pain, back pain, hand pain, leg pain, foot pain Neurological:; No: Weakness, Numbness, Incoordination, Change in speech, Confusion, Seizures Patient reports: Feels better Objective vital signs Vital Sign Date Time Temp Pulse Resp B/P (MAP) Pulse Ox O2 Delivery O2 Flow Rate FiO2 07/07/24 05:00 98.2 72 19 133/79 (97) 98 98.2 07/07/24 01:44 21 07/06/24 20:23 Room Air* 0 Total Intake and Output 07/06/24 07/06/24 07/07/24 15:00 23:00 07:00 Intake Total 300 ml 1600 ml 725 ml Output Total 1000 ml 650 ml Balance 300 ml 600 ml 75 ml medications Current Medications Medications Dose Ordered Sig/Jorge Route Start Time Stop Time Status Last Admin Dose Admin Azithromycin 250 ml @ 125 mls/hr DAILY IV 07/05/24 10:00 07/06/24 12:13 125 MLS/HR Ceftriaxone Sodium 50 ml @ 100 mls/hr DAILY@09 IV 07/05/24 09:00 07/06/24 10:24 100 MLS/HR Albuterol 2.5 mg Q4HPRN PRN NEB 07/04/24 11:30 07/06/24 08:53 2.5 MG Ipratropium [place] 0.5 mg Q4HPRN PRN NEB 07/04/24 11:30 07/06/24 08:53 0.5 MG Docusate Sodium 100 mg BIDPRN PRN PO 07/04/24 11:30 Acetaminophen 650 mg Q6HP PRN PO 07/04/24 11:30 Acetaminophen/ Hydrocodone Bitart 1 tab Q4HP PRN PO 07/04/24 11:30 Ondansetron HCl 4 mg Q4HP PRN IV 07/04/24 11:30 Morphine Sulfate 2 mg Q4HPRN PRN IV 07/04/24 11:30 Zolpidem Tartrate 5 mg QPM PO 07/05/24 20:00 07/06/24 18:11 5 MG Amlodipine Besylate 2.5 mg DAILY PO 07/06/24 10:00 07/06/24 10:26 2.5 MG Examination Examination General Appearance: Alert, Oriented X3, Cooperative, No acute distress HEENT: EOMI Respiratory: Clear to auscultation, Normal air movement Cardiovascular: Regular rate, Normal S1, Normal S2, crescendo decrescendo, late-peaking due to aortic stenosis Abdominal: Normal bowel sounds Extremities: No cyanosis, No edema, Normal pulses, No tenderness/swelling Skin: No rashes, No breakdown Neuro: Normal gait, Normal speech, Strength at 5/5 X4 ext, Normal tone, Sensation intact, Cranial nerves 3-12 NL, Reflexes 2+ Psych/Mental Status: Mental status NL, Mood NL laboratory and microbiology Laboratory Tests 07/07/24 04:50 Test 07/07/24 04:50 Range/Units Serum Glucose 86 74-106 mg/dL Microbiology Date/Time Source Procedure Growth Status 07/05/24 00:10 Nose MRSA Screen - Final Complete 07/04/24 09:30 Blood Blood Culture - Preliminary NO GROWTH AFTER 48 HOURS OF INCUBATION. Resulted Problem List/Assessment/Plan Problem List/Assessment/Plan Acute Gram-positive / negative bacterial pneumonia CXR showed right lower lobe pneumonia with possible small right pleural effusion. Currently under empiric IV antibiotic (azithromycin and ceftriaxone) On bronchodilator medication ordered sputum cultures and blood cultures Guaifenesin 200 p.o. 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 medication Osteoarthritis Optimize pain medication Goals of care discussed with patient for over 18 minutes: Full code status Case management discussed with Dr. Lu, patient and nurse: Patient is still presents abundant productive cough. Plan discussed with: Patient Date of Service: Jul 07, 2024 Billing Provider: SILVINA LU MD Common Visit Codes: NOT BILLABLE KATRIN GOMEZ RESIDENT Jul 07, 2024 08:23 SILVINA LU MD Jul 07, 2024 19:59
[2024-07-07] MEDS ORDERED: ZOLP5TAB PO (10:49)
[2024-07-07] MEDS ORDERED: AZITTAB PO (11:22)
[2024-07-07] MEDS ORDERED: PRED20TA2 PO (11:22)
--- NOTE | 2024-07-07 11:42 | DVHDSRES ---
Discharge Summary Date of Admission Resident Creating Document: KATRIN GOMEZ RESIDENT Jul 04, 2024 at 11:22 Date of Discharge: Jul 07, 2024 Admitting Diagnosis Pneumonia Labs/Diagnostic Data: Laboratory Results Test 07/07/24 04:50 07/06/24 18:16 07/05/24 04:23 07/05/24 00:10 White Blood Count 6.8 10^3/uL (4.4-10.8) Red Blood Count 4.30 10^6/uL (4.5-5.90) Hemoglobin 14.2 g/dL (13.5-17.5) Hematocrit 39.6 % (41.0-53.0) Mean Corpuscular Volume 92.1 fL (80.0-100.0) Mean Corpuscular Hemoglobin 33.0 pg (28.0-32.0) Mean Corpuscular Hemoglobin Concent 35.8 g/dL (32.0-36.0) Red Cell Distribution Width 11.9 % (11.8-14.3) Platelet Count 184 10^3/uL (140-450) Mean Platelet Volume 8.8 fL (6.9-10.8) Neutrophils (%) (Auto) 51.5 % (37.0-80.0) Lymphocytes (%) (Auto) 30.8 % (10.0-50.0) Monocytes (%) (Auto) 13.1 % (0.0-12.0) Eosinophils (%) (Auto) 4.4 % (0.0-7.0) Basophils (%) (Auto) 0.2 % (0.0-2.0) Neutrophils # (Auto) 3.5 10 ^3/uL (1.6-8.6) Lymphocytes # (Auto) 2.1 10 ^3/uL (0.4-5.4) Monocytes # (Auto) 0.9 10 ^3/uL (0-1.3) Eosinophils # (Auto) 0.3 10 ^3/uL (0-0.8) Basophils # (Auto) 0 10 ^3/uL (0-0.2) Nucleated Red Blood Cells 0.1 % Sodium Level 139 mmol/L (136-145) Potassium Level 4.2 mmol/L (3.5-5.1) Chloride Level 104 mmol/L (98-107) Carbon Dioxide Level 26 mmol/L (20-31) Anion Gap 9 (5-15) Blood Urea Nitrogen 16 mg/dL (9-23) Creatinine 1.02 mg/dL (0.700-1.30) Glomerular Filtration Rate Calc 81 mL/min (>90) BUN/Creatinine Ratio 15.7 (10.0-20.0) Serum Glucose 86 mg/dL (74-106) Calcium Level 10.1 mg/dL (8.7-10.4) Phosphorus Level 3.6 mg/dL (2.4-5.1) Magnesium Level 2.3 mg/dL (1.6-2.6) Urine Color Light-yellow (Yellow) Urine Clarity Clear (Clear) Urine pH 6.0 (5.0-9.0) Urine Specific [place] 1.010 (1.001-1.035) Urine Protein Negative (Negative) Urine Ketones Negative (Negative) Urine Blood Negative /uL (Negative) Urine Nitrite Negative (Negative) Urine Bilirubin Negative (Negative) Urine Urobilinogen Normal mg/dL (Negative) Urine Leukocyte Esterase Negative /uL (Negative) Urine RBC <1 /hpf (0 - 3) Urine WBC None seen /hpf (0 - 3) Urine Squamous Epithelial Cells None seen /hpf (<5) Urine Bacteria None seen /hpf (None Seen) Urine Glucose Normal mg/dL (Normal) Urine Opiates Screen Neg (NEGATIVE) Urine Fentanyl Screen Neg (NEGATIVE) Urine Barbiturates Screen Neg (NEGATIVE) Urine Phencyclidine Screen Neg (NEGATIVE) Urine Amphetamines Screen Neg (NEGATIVE) Urine Benzodiazepines Screen Neg (NEGATIVE) Urine Cocaine Screen Neg (NEGATIVE) Urine Cannabinoids Screen Neg (NEGATIVE) Prothrombin Time 11.0 sec (9.3-11.8) Prothrombin Time INR 1.04 (0.9-1.15) Activated Partial Thromboplast Time 32.1 SEC (24.5-34.5) Hemoglobin A1c 5.3 % A1C (<5.7) Total Bilirubin 1.2 mg/dL (0.2-1.0) Aspartate Amino Transferase (AST) 26 U/L (13-40) Alanine Aminotransferase (ALT) 12 U/L (7-40) Alkaline Phosphatase 89 U/L (46-116) Total Protein 7.1 g/dL (5.7-8.2) Albumin 4.1 g/dL (3.2-4.8) Plasma/Serum Blood Alcohol < 3.0 mg/dL (<10) SARS-CoV-2 Antigen (Rapid) Negative (NEGATIVE) Test 07/04/24 09:30 Lactic Acid Level 0.8 mmol/L (0.4-2.0) Other Laboratory Tests 07/07/24 04:50 Brief Hx & Hospital Course: HPI: 68-year-old male patient with past medical history of hypertension, COPD, osteoarthritis, anxiety who presented to the emergency department with the chief complaint of progressive dyspnea functional class 3 associated with fever, nausea, dysgeusia and productive cough with yellowish sputum for the last 4 days prior to admission. He denies recent exposure to individuals with flu-like symptoms and decreased smoke exposure. The patient denied chest pain nausea, vomiting, diarrhea, abdominal pain or acute symptoms Hospital course: Patient was admitted for acute respiratory symptoms, suspected to be bronchitis abundant productive cough with yellow sputum persisted but improved with supportive care. The sputum culture was pending at discharge. Patient reports feeling better and during hospitalization with improved shortness of breath and overall respiratory status. Patient will continue with antihypertensive medication as prescribed bronchodilators, prednisone, azithromycin and Ambien for insomnia. Disposition: Patient improved and stable for discharge, patient will [facility]. Goals of care discussed with the patient for 46 minutes. Case discussed with Dr. Lu Operations or Procedures [place] [id number] Ph: [phone] DIAGNOSTIC IMAGING Diagnostic Imaging Report : [id number] Signed PATIENT: MELANIE ABREU JR ACCT: [id number] UNIT: [id number] : 1955 LOC: ER ROOM / BED: / AGE / SEX: 68 / M ADM STATUS: REG ER SERVICE 5 ORDERING PHYSICIAN: BREEZY OROZCO PROCEDURE(s): CXR2 - CHEST TWO VIEWS ROUTINE REASON: COUGH ORDER NUMBER(s): [id number], ACCESSION NUMBER(s): [id number] EXAM: XY CHEST TWO VIEWS ROUTINE CLINICAL HISTORY: COUGH COMPARISON: None TECHNIQUE: Frontal and lateral view of the chest was obtained FINDINGS: Lines and Tubes: None Lungs: Right basilar opacity. Pleura: Possible small right pleural effusion. No pneumothorax. Cardiomediastinal contours: Unremarkable Bones: No acute osseous abnormality. IMPRESSION: Suggestion of right lower lobe pneumonia with possible small right pleural effusion. Recommend repeat radiograph after the completion of treatment to ensure resolution. 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 Blunting of the right costophrenic angle May relate to small effusion. Mild pulmonary vascular congestion and interstitial prominence. Findings appear similar to prior examination. ATED BY: EDIN REYNOSO MD DICTATED DATE/TIME: 07/05/24628 SIGNED BY: EDIN REYNOSO MD SIGNED DATE/TIME: 07/05/24628 CC: Condition at Discharge: Fair Final Diagnosis/Problems List acute respiratory failure likely Acute Gram-positive / negative bacterial pneumonia Questionable COPD Essential hypertension Mild aortic stenosis based on recent echocardiogram Anxiety Osteoarthritis Discharge Disposition: Home SNF Discharge Will this Physician continue t: No Discharge Instruct/Medications Diet: Cardiac 2g Na,low cholest Activity: No Restrictions, As Tolerated Follow Up/Referral: follow up with pcp within 1 to 2 weeks follow up with pulmonology within 1 to 2 weeks Medications: azithromycin x 5 days zolpidem po prednisone po Discharge Statement: "Patient was advised to return to the ER or call 911 if any headaches, dizziness, shortness of breath, chest pain, abdominal pain, bleeding, fevers, or worsening of medical condition. Patient was counseled about treatment plan, medications, possible side effects, patientverbalized understanding. All questions were answered to the best of my ability. This discharge took greater then 30 minutes in planning, reviewing documentation, counseling the patient, and discussing with other team members." ASSESSMENT ASSESSMENT Assessment acute respiratory failure likely due to pneumonia? COPD exacerbation? Date of Service: Jul 07, 2024 Billing Provider: SILVINA LU MD Common Visit Codes: [id number]/[id number] DISCH DAY >30min KATRIN GOMEZ RESIDENT Jul 07, 2024 11:42 SILVINA LU MD Jul 07, 2024 19:59
== END 2024-07-07 18:10 | disposition home or self-care (01) | DRG 177 ==
LOC: EDBD 07:47 → ER 07:47 → OVERFLOW 11:22 → WEST WING 22:00
PROVIDERS: ADMIT Internal Medicine Geriatric Medicine; ATTEND Internal Medicine Geriatric Medicine
DX: J15.69 Pneumonia due to other Gram-negative bacteria (principal); J96.00 Acute respiratory failure, unspecified whether with hypoxia or hypercapnia; J44.0 Chronic obstructive pulmonary disease with (acute) lower respiratory infection; J44.1 Chronic obstructive pulmonary disease with (acute) exacerbation; Z20.822 Contact with and (suspected) exposure to COVID-19; M19.09 Primary osteoarthritis, other specified site; I35.0 Nonrheumatic aortic (valve) stenosis; I10 Essential (primary) hypertension; F41.9 Anxiety disorder, unspecified; M19.90 Unspecified osteoarthritis, unspecified site; J15.9 Unspecified bacterial pneumonia; Z82.49 Family history of ischemic heart disease and other diseases of the circulatory system; Z87.01 Personal history of pneumonia (recurrent)
CPT/HCPCS: 36415; 71045; 71046; 80048; 80053; 80307; 80320; 81001; 82306; 82607; 83036; 83605; 83735; 84100; 85025; 85610; 85730; 87040; 87081; 87426; 93306; 94640; G0378